=== PATIENT | female | born 1950 | race Caucasian/White ===

== ENCOUNTER 2017-02-04 18:04 | Emergency (ER) | payer OTHER ==
[~2017-02-04 18:04] MED LIST: ADULT ASPIRIN81 MG PO; BABY ASPIRIN81 MG; BENAZEPRIL HCL20 MG PO; CYCLOBENZAPRINE10 M1 PO; DARVOCET-N 1001 TAB; DELTASONE50 MG PO; FLONASE16 GM NS; HYDROXYCHLOROQ200 MG PO; HYZAAR 100-25 T1 TAB; LIPITOR40 MG; MUCINEX D1 TAB.SR .; NEURONTIN100 MG; NEURONTIN100 MG PO; NEURONTIN600 M1 PO; NORVASC10 MG PO; NORVASC5 M2; PREMARIN0.625 MG; SEPTRA DS TABLE1 TAB PO; SIMVASTATIN40 MG PO; TYLENOL #31 TA1 PO; VALIUM2 MG PO; ZITHROMAX250 MG PO; ZOCOR40 MG PO
[2017-02-04] MEDS ORDERED: PROAIR HFA8.5 GM (18:30)
[2017-02-04] MEDS ORDERED: MECLIZINE HCL12.5 M3 PO (18:46)
== END 2017-02-04 18:45 ==
LOC: EDMED 18:04
DX: H81.10 Benign paroxysmal vertigo, unspecified ear (principal); J44.9 Chronic obstructive pulmonary disease, unspecified; Z90.49 Acquired absence of other specified parts of digestive tract